=== PATIENT | female | born 1965 | race Caucasian/White ===

== ENCOUNTER 2017-12-28 13:32 | Emergency (ER) | payer SELFPAY ==
[2017-12-28 13:34] VITALS: BP 111/80; PULSE 99; RESP 18; TEMP 36.4; O2SAT 99; BMI 21.2
[2017-12-28] MEDS: Diphth,Pertuss(Acell),Tet Vac 0.5 ML Vial IM (14:53)
[2017-12-28] MEDS: Lidocaine/Epi/Tetracaine 50 ML 1 APPLIC TOPICAL (14:54)
[2017-12-28] MEDS: Ibuprofen 600 MG Tablet PO (14:54)
--- NOTE | 2017-12-28 15:59 | ED.VISSUMM ---
- ER Visit Summary Date of Service: 12/28/17 Chief Complaint: Laceration History of Present Illness: The patient is a 52 F with no primary care physician. 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 She denies any pain or paresthesias. She is unsure when her last tetanus shot was. She is right-hand dominant. Physical Examination: Vitals: Stable. Afebrile. General: Well-nourished and well-developed. Head: Normocephalic atraumatic. Neck: Supple, no lymphadenopathy. No JVD. Nontender. Cardiovascular: Regular rate and rhythm. No murmurs. Respiratory: No respiratory distress. Clear to auscultation bilaterally. Abdominal: Soft, nontender, nondistended, normal bowel sounds. No guarding, rebound, or peritoneal signs. Back: Nontender. Extremities: 2 cm laceration to the back of her left first metacarpal with approximately 25% laceration of her extensor pollicis brevis. She is able to extend her thumb at this time. She is neurovascularly intact. no edema. Skin: Normal color, no rash. Neurologic: Alert and oriented ?3. Cranial nerves II through XII are intact. Normal strength and sensation. Psych: Normal affect. Emergency Department Course and Treatment: Patient had her tetanus updated. I had a prolonged discussion with her about treatment options for this. Ultimately, she has refused to have the laceration or the tendon repaired. I did discuss there are that there is the risk of the tendon will rupture and she will be unable to extend her thumb. He understands this and would like to have it Steri-Stripped. Treatment Plan: Patient was placed in aluminum foam splint. Prior to her refusal I did speak with Dr. Booth who asked that this be repaired and that she would take her to the operating room in 3 days. This was also discussed the patient and she is aware of this, but it sounds as though this is not something she wants to do. I did discuss that if the tendon does rupture of the repair will be much more difficult. She could end up with a permanent disability and weakness in that thumb. She understands this and is going to leave AGAINST MEDICAL ADVICE. Disposition: Left AGAINST MEDICAL ADVICE Impression: 1. Left hand laceration, 2 cm, not repaired. 2. Proximal 25% laceration left extensor pollicis brevis. 3. Left AMA. This note was generated with [employer] dictation software. It may contain incorrect words, spelling, and punctuation that were not noted in review of the chart prior to signing ED Disposition - Plan for ED Patient: Disposition: Home or Assisted Living Chief Complaint: Laceration Instructions: ED Laceration Tendon Referrals: Elizabeth Booth DO [STAFF PHYSICIAN] - As soon as possible
[2017-12-28 16:19] VITALS: BP 96/77; PULSE 64; RESP 18
--- NOTE | 2017-12-28 16:20 | ED.RN ---
pt reports being unsure if she wants to send the claim through [employer], after jennifer from [facility] spent time talking to her and researching different options pt reports that she would like to be self pay for now. dr. gabriel was in several times to talk to the patient about the partial tendon laceration and after talking to dr. hein she would need to have the tendon repaired in surgery. pt voices understanding. pt reports being afraid to and not wanting to have surgery and wasn't sure if she even wanted sutures. after several times of talking to pt and exploring the different options, pt decided to steri strips and foam finger splint.
== END 2017-12-28 16:24 | disposition left against medical advice (07) ==
LOC: ED 15:52
PROVIDERS: Emergency Provider Emergency Medicine
DX: S66.922A Laceration of unspecified muscle, fascia and tendon at wrist and hand level, left hand, initial encounter (principal); W26.8XXA Contact with other sharp object(s), not elsewhere classified, initial encounter; Y93.9 Activity, unspecified; Y92.89 Other specified places as the place of occurrence of the external cause; Y99.0 Civilian activity done for income or pay; F17.200 Nicotine dependence, unspecified, uncomplicated; Z23 Encounter for immunization
CPT/HCPCS: 90471; 90715; 99283

== ENCOUNTER → 2021-08-07 18:21 | Outpatient (CLI) | payer BC, SELFPAY | PROVIDERS: Visit Provider Physician Assistant Surgical | DX: U07.1 COVID-19 (principal) | CPT/HCPCS: 87635; U0005; U0003 ==

== ENCOUNTER 2024-12-22 17:20 | Emergency (ER) | payer BC, SELFPAY ==
[2024-12-22 17:21] VITALS: BP 136/90; PULSE 110; RESP 16; TEMP 36.6; O2SAT 97; BMI 23.4
--- NOTE | 2024-12-22 18:11 | EX.ED.DYSGE1 ---
HPI History of Present Illness Chief Complaint: Lower Extremity Injury PFSH [facility] Home Medications ?Medication ?Instructions ?Recorded ?Last Taken ?Type apixaban 5 mg (74 tabs) tablets in See Rx Instructions PO .COMPLEX 12/22/24 Unknown Rx a dose pack (Eliquis DVT-PE Treat #74 tabs 30D Start) Allergy/AdvReac Type Severity Reaction Status Date / Time No Known Allergies Allergy Verified 12/22/24 17:20 Social History Smoking Status: Current every day smoker tobacco type: cigarettes EXAM Physical Exam Const Vital Signs: 12/22/24 17:21 12/22/24 20:14 Temperature 98 F 98 F Temperature Source Oral Pulse Rate 110 H 68 Respiratory Rate 16 17 Blood Pressure 136/90 H 135/88 H Blood Pressure Mean 105 103 Pulse Ox 97 99 Oxygen Delivery Method Room Air [facility] MDM MDM Narrative Medical decision making narrative: HISTORY OF PRESENT ILLNESS: Chief complaint: Leg swelling 51-year-old female presents with left calf pain that started this morning. States it feels like a charley horse. No history of DVT. Denies chest pain or shortness of REVIEW OF SYSTEMS: Pertinent positives: Left leg pain Pertinent negatives: Chest pain, shortness of breath PHYSICAL EXAM: Nursing triage notes reviewed, Vital signs reviewed Constitutional: please see mdm Lungs: Clear to auscultation, No wheezing or rales. No increased work of breathing, no conversational dyspnea, no accessory muscle use, no nasal flaring. No respiratory distress noted Heart: Regular rate and rhythm, No murmurs, No rubs and No gallops, 2+ distal pulses (radial, femoral, posterior tibial) in all extremities Extremities: Slight noticeable edema in left lower extremity greater than right lower extremity. Neuro: Intact sensation L1-S1 dermatomal distributions. Intact 5/5 strength in hip flexion (T12-L3). Knee extension (L2-L4). Ankle dorsiflexion (L4-L5). Ankle plantar flexion (S1). Great toe extension (L5). 2+ patellar and Achilles DTRs. MEDICAL DECISION MAKING: Chief Complaint: please see HPI MDM Narrative: Patient was initially tachycardic otherwise afebrile and nontoxic-appearing. Exam with some swelling left lower extremity I considered the following differential diagnosis: Cellulitis, muscle strain, DVT, necrotizing fasciitis ALL IMAGES (IF OBTAINED) HAVE BEEN PERSONALLY REVIEWED AND INTERPRETED BY MYSELF. DVT ultrasound positive Risk and benefits of anticoagulation was discussed. The patient denied any history of bleeding diathesis including brain bleeding or internal bleeding or peptic ulcers. She is started on Eliquis first dose given here. 30-day starter pack prescribed. Strict return precautions were discussed. The patient and/or family, caregivers express understanding. The patient and/or family, caregivers agrees with the plan. Shared decision making: I will have a discussion with the patient and or visitors regarding risk/benefits of further testing or admission. They will be made aware of of the risk/benefits inherent in this decision they will be given the opportunity to voice understanding. Total critical care time today provided was at least 0 minutes. This excludes separately billable procedures. Critical care time (if documented) is secondary to the patient having high probability of clinically significant/life threatening deterioration in the patient's condition which required my urgent intervention. Impression: 1. Acute leg pain 2. Acute DVT Dispo: Discharge home This note was generated with [employer] dictation software. It may contain incorrect words, spelling, and punctuation that were not noted in review of the chart prior to signing. Radiography Diagnostic Testing: Clinical Impression(s) from Imaging Studies Venous Duplex 12/22/24 18:53 IMPRESSION: DVT of the left popliteal vein, tibioperoneal trunk, posterior tibial vein and peroneal vein. [facility] Chief Complaint: Lower Extremity Injury ED Provider: Steve Sandoval Dx/Rx/DC Orders Instructions: Apixaban, DVT Dc Prescriptions: New Eliquis DVT-PE Treat 30D Start 5 mg (74 tabs) tablets,dose pack See Rx Instructions .ROUTE .COMPLEX Qty: 74 0RF Rx Instructions: orally per package directions Primary Care Provider: Care Physician,No Primary Referrals: Maxwell Haywood MD [Med Staff - Specification Manager] - Activity Restrictions/Additional Instructions: Thank you for trusting us with your care today! Your DVT ultrasound was positive for acute deep vein thrombosis. There is a blood clot in your leg. It is treated with blood thinners. I prescribed Eliquis (a blood thinner )please take as prescribed. Please take Tylenol (2 pills, 650 mg) every 6 hours as needed for pain and fever control. Please return to the emergency department if your symptoms change or worsen. Specifically develop shortness of breath, chest pain, you lose consciousness or if you develop decree sensation, blue discoloration or severe swelling in your left lower extremity. Please follow with your primary care physician for further outpatient evaluation and management. Print Language: Japanese Disposition Disposition: Home, Self Care Discharge Date/Time: 12/22/24 20:15
--- NOTE | 2024-12-22 18:53 | US_ITS ---
EXAM: US Duplex Bilateral Lower Extremities Veins CLINICAL INDICATION: TECHNIQUE: Real-time duplex ultrasound scan of the bilateral lower extremity veins integrating B-mode two-dimensional vascular structure, Doppler spectral analysis, color flow Doppler imaging and compression. COMPARISON: No relevant prior studies available. FINDINGS: RIGHT DEEP VEINS: Unremarkable. No DVT in the right common femoral, femoral, proximal deep femoral or popliteal veins. The veins demonstrate normal color flow, are normally compressible, with normal phasic flow and/or augmentation response. RIGHT SUPERFICIAL VEINS: Unremarkable. No thrombus in the visualized right great saphenous vein. LEFT DEEP VEINS: DVT of the left popliteal vein, tibioperoneal trunk, posterior tibial vein and peroneal vein. LEFT SUPERFICIAL VEINS: Unremarkable. No thrombus in the visualized left great saphenous vein. SOFT TISSUES: No acute findings. No popliteal cyst. US/Venous Duplex Imag/Limited/Uni IMPRESSION: DVT of the left popliteal vein, tibioperoneal trunk, posterior tibial vein and peroneal vein. Reading Location: [id number]
[2024-12-22] MEDS: APIXABAN 5 MG TABLET 10 MG PO (20:10)
[2024-12-22 20:14] VITALS: BP 135/88; PULSE 68; RESP 17; TEMP 36.6; O2SAT 99
== END 2024-12-22 20:15 | disposition home or self-care (01) ==
PROVIDERS: Emergency Provider Emergency Medicine; Visit Provider Emergency Medicine
DX: I82.432 Acute embolism and thrombosis of left popliteal vein (principal); I82.442 Acute embolism and thrombosis of left tibial vein; I82.452 Acute embolism and thrombosis of left peroneal vein; F17.210 Nicotine dependence, cigarettes, uncomplicated; Z79.01 Long term (current) use of anticoagulants
CPT/HCPCS: 93971; 99282